=== PATIENT | male | born 1970 | race Caucasian/White ===

== ENCOUNTER 2016-09-14 13:06 | Emergency (ER) | payer MEDICARE, OTHER ==
[2016-09-14 13:23] VITALS: TEMP 97.1; O2SAT 96
--- NOTE | 2016-09-14 13:42 | ED.PDOC ---
History of Present Illness - General Chief Complaint: Chest Pain/VA Stated Complaint: chest pain Time Seen by Provider: 09/14/16 13:35 Source: patient Additional Information: C/P X 30 MINUTES. SUBSTERNAL, SOB, N, DIAPHORESIS - History of Present Illness Timing/Duration: 1/2 hour Severity: mild Improving Factors: other - SPONTANEOUS Worsening Factors: nothing Associated Symptoms: chest pain, diaphoresis, shortness of breath Allergies/Adverse Reactions: Allergies Penicillins Allergy (Intermediate, Verified 02/13/16 15:12) Unknown Home Medications: Ambulatory Orders Insulin Aspart [Novolog] 0 unit SC PRN PRN 03/19/14 Losartan Potassium 25 mg PO TUTHSA 03/19/14 Spironolactone [Aldactone] 25 mg PO DAILY 03/19/14 Trazodone HCl 100 mg PO BEDTIME 04/23/14 Ondansetron [Zofran Odt] 4 mg PO QID PRN #20 tab 05/27/15 Atorvastatin Calcium [Lipitor] 20 mg PO DAILY 11/22/15 Carvedilol [Coreg] 25 mg PO BID 11/22/15 Citalopram Hydrobromide [Celexa] 20 mg PO DAILY 11/22/15 Cyproheptadine HCl 4 mg PO DAILY 11/22/15 Ergocalciferol [Vitamin D] 50,000 unit PO MONTHLY 11/22/15 Losartan Potassium [Cozaar] 50 mg PO SUMOWEFR 11/22/15 Megestrol Acetate 40 mg PO DAILY 11/22/15 Omeprazole [PriLOSEC Cap] 20 mg PO DAILY 11/22/15 Promethazine Tab [Phenergan Tablet] 25 mg PO PRN PRN 11/22/15 LORazepam [Ativan] 1 mg PO PRN PRN 02/13/16 Potassium Chloride [Klor-Con] 20 meq PO DAILY 02/13/16 Review of Systems - Review of Systems EENTM: Denies: blurred vision, ear pain Respiratory: States: short of breath. Denies: cough, wheezing Cardiology: Denies: chest pain, palpitations Gastrointestinal/Abdominal: Denies: abdominal pain, nausea, vomiting Genitourinary: Denies: dysuria, hematuria Musculoskeletal: Denies: back pain, neck pain Skin: States: no symptoms reported Neurological: States: no symptoms reported Endocrine: States: no symptoms reported Hematologic/Lymphatic: States: no symptoms reported Past Medical History (General) - Patient Medical History Hx Seizures: No Hx Stroke: No Hx Dementia: No Hx Asthma: No Hx of COPD: No Hx Cardiac Disorders: Yes Hx Congestive Heart Failure: Yes Hx Pacemaker: No Hx Hypertension: Yes Hx Thyroid Disease: No Hx Diabetes: No Hx Gastroesophageal Reflux: Yes Hx Renal Disease: Yes - End stage, on dialysis Hx Cancer: No Hx of HIV: No Hx Hepatitis C: Yes - hx drug use Hx MRSA: No - Vaccination History Hx Tetanus, Diphtheria Vaccination: Yes Hx Influenza Vaccination: Yes - 2016 Hx Pneumococcal Vaccination: Yes - Social History Hx Tobacco Use: Yes Hx Chewing Tobacco Use: No Hx Alcohol Use: Yes - former Hx Substance Use: Yes Hx Substance Use Treatment: No Hx Depression: Yes Hx Physical Abuse: No Hx Emotional Abuse: No Hx Suspected Abuse: No - Activities of Daily Living Halfway/Assisted Living (if applicable):: [facility] - Female History Patient : No Family Medical History - Family History Mother Family History: No Known Living Status: Hx Family Asthma: No Hx Family Congestive Heart Failure: Yes Hx Family Hypertension: Yes Hx Family Stroke: Yes - unsure Hx Cardiac Disease: Yes Hx Family Diabetes: Yes Hx Family Cancer: No Physical Exam - Physical Exam General Appearance: Alert, Comfortable Eye Exam: bilateral normal Ears, Nose, Throat: hearing grossly normal, normal ENT inspection Neck: non-tender, full range of motion, supple Respiratory: lungs clear, normal breath sounds, no respiratory distress Cardiovascular/Chest: regular rate, rhythm, no murmur Gastrointestinal/Abdominal: non tender, soft, no organomegaly Back Exam: normal inspection, no CVA tenderness Extremity: normal range of motion, non-tender Neurologic: normal mood/affect, oriented x 3 Skin Exam: normal color, warm/dry Lymphatic: no adenopathy Progress - Progress Progress: 09/14/16 14:58 NO CP SINCE ARRIVAL, LAB OK, K 5.1. NO EKG CHANGES. D/W DR CHAVEZ, WILL ARRANGE FOR DIALYSIS TOMORROW. - EKG/XRAY/CT EKG: Sinus - RARE 82, NL AXIS, NL INTERVALS, , no ST T wave changes - NAIP, NO CHANGE COMPARED TO 05/27/15 Departure - Departure Clinical Impression: Chest pain Qualifiers: Chest pain type: precordial chest pain Qualifier Code: (R07.2) Precordial pain Time of Disposition: 15:01 Disposition: Discharge to Home or Self Care Condition: Good Departure Forms: ED Discharge - Pt. Copy, Patient Portal Self Enrollment Home Medications: Ambulatory Orders Insulin Aspart [Novolog] 0 unit SC PRN PRN 03/19/14 Losartan Potassium 25 mg PO TUTHSA 03/19/14 Spironolactone [Aldactone] 25 mg PO DAILY 03/19/14 Trazodone HCl 100 mg PO BEDTIME 04/23/14 Ondansetron [Zofran Odt] 4 mg PO QID PRN #20 tab 05/27/15 Atorvastatin Calcium [Lipitor] 20 mg PO DAILY 11/22/15 Carvedilol [Coreg] 25 mg PO BID 11/22/15 Citalopram Hydrobromide [Celexa] 20 mg PO DAILY 11/22/15 Cyproheptadine HCl 4 mg PO DAILY 11/22/15 Ergocalciferol [Vitamin D] 50,000 unit PO MONTHLY 11/22/15 Losartan Potassium [Cozaar] 50 mg PO SUMOWEFR 11/22/15 Megestrol Acetate 40 mg PO DAILY 11/22/15 Omeprazole [PriLOSEC Cap] 20 mg PO DAILY 11/22/15 Promethazine Tab [Phenergan Tablet] 25 mg PO PRN PRN 11/22/15 LORazepam [Ativan] 1 mg PO PRN PRN 02/13/16 Potassium Chloride [Klor-Con] 20 meq PO DAILY 02/13/16 Additional Instructions: FOLLOW UP A DIALYSIS TOMORROW
--- NOTE | 2016-09-14 14:36 | RAD ---
EXAM DESCRIPTION: XR CHEST 1 VIEW CLINICAL HISTORY: chest pain COMPARISON: 04/07/2016 TECHNIQUE: Single-view FINDINGS: Heart size is top limits normal. Lungs are clear. No acute osseous injury. IMPRESSION: No acute chest process Electronically signed by: Yunior Escamilla MD 09/14/2016 14:35
[2016-09-14 14:52] VITALS: BP 191/110
[2016-09-14] MEDS ORDERED: cloNIDine HCL 0.1 MG TAB PO ONE (15:04)
== END 2016-09-14 15:00 | disposition home or self-care (01) ==
LOC: ER 13:06
DX: R07.2 Precordial pain (principal); I13.2 Hypertensive heart and chronic kidney disease with heart failure and with stage 5 chronic kidney disease, or end stage renal disease; I50.9 Heart failure, unspecified; N18.6 End stage renal disease; Z99.2 Dependence on renal dialysis; K21.9 Gastro-esophageal reflux disease without esophagitis; Z86.19 Personal history of other infectious and parasitic diseases; Z88.0 Allergy status to penicillin; Z79.4 Long term (current) use of insulin; Z79.899 Other long term (current) drug therapy; Z87.891 Personal history of nicotine dependence

== ENCOUNTER 2016-09-22 15:11 | Emergency (ER) | payer MEDICARE, OTHER ==
[2016-09-22 15:40] VITALS: TEMP 96.7
[2016-09-22] MEDS ORDERED: MORPHINE SULFATE INJ 10 MG/ML VIAL IV ONE ×2 (16:03→17:31)
--- NOTE | 2016-09-22 16:30 | RAD ---
EXAM DESCRIPTION: Hip,Right 2 Views CLINICAL HISTORY: 46 years, Male, FALL COMPARISON: CT abdomen and pelvis without contrast November 22, 2015. FINDINGS: There is a displaced intertrochanteric fracture of the right femur with varus angulation. The femoral head remains well-seated in the acetabulum. There is a suspected nondisplaced fracture of the superior pubic ramus. Limited evaluation of the lower lumbar spine and sacrum demonstrate no gross abnormalities. The soft tissue structures of the pelvis and proximal thighs are grossly normal. IMPRESSION: 1. Transverse, displaced, angulated intertrochanteric fracture of the right femur. 2. Suspected nondisplaced fracture of the right superior pubic ramus. Electronically signed by: David Lambert MD 09/22/2016 4:29 PM DIRECTOR OF OCCUPATIONAL HEALTH
--- NOTE | 2016-09-22 17:35 | ED.PDOC ---
History of Present Illness - General Chief Complaint: Lower Extremity Injury Stated Complaint: right hip pain Time Seen by Provider: 09/22/16 17:05 Source: patient, RN notes reviewed, Vital Signs reviewed, EMS Exam Limitations: no limitations - History of Present Illness Initial Comments: Patient is a 46 y/o male with a history of end stage renal disease who was sitting on a bench earlier today when he stood up and fell. He was initially able to bear weight when EMS arrived, however shortly thereafter unable to bear weight at all. The pain is a 7/10 in his right leg. Sharp pain. Timing/Duration: 1 hour Severity: severe Improving Factors: immobilization Worsening Factors: movement Allergies/Adverse Reactions: Allergies Penicillins Allergy (Intermediate, Verified 02/13/16 15:12) Unknown Home Medications: Ambulatory Orders Insulin Aspart [Novolog] 0 unit SC PRN PRN 03/19/14 Losartan Potassium 25 mg PO TUTHSA 03/19/14 Spironolactone [Aldactone] 25 mg PO DAILY 03/19/14 Trazodone HCl 100 mg PO BEDTIME 04/23/14 Ondansetron [Zofran Odt] 4 mg PO QID PRN #20 tab 05/27/15 Atorvastatin Calcium [Lipitor] 20 mg PO DAILY 11/22/15 Carvedilol [Coreg] 25 mg PO BID 11/22/15 Citalopram Hydrobromide [Celexa] 20 mg PO DAILY 11/22/15 Cyproheptadine HCl 4 mg PO DAILY 11/22/15 Ergocalciferol [Vitamin D] 50,000 unit PO MONTHLY 11/22/15 Losartan Potassium [Cozaar] 50 mg PO SUMOWEFR 11/22/15 Megestrol Acetate 40 mg PO DAILY 11/22/15 Omeprazole [PriLOSEC Cap] 20 mg PO DAILY 11/22/15 Promethazine Tab [Phenergan Tablet] 25 mg PO PRN PRN 11/22/15 LORazepam [Ativan] 1 mg PO PRN PRN 02/13/16 Potassium Chloride [Klor-Con] 20 meq PO DAILY 02/13/16 Review of Systems - Review of Systems Constitutional: States: no symptoms reported EENTM: States: no symptoms reported Respiratory: States: no symptoms reported Cardiology: States: no symptoms reported Gastrointestinal/Abdominal: States: no symptoms reported Genitourinary: States: no symptoms reported Musculoskeletal: States: joint pain, muscle pain Skin: States: no symptoms reported Neurological: States: no symptoms reported Endocrine: States: no symptoms reported Hematologic/Lymphatic: States: no symptoms reported All other Systems: Reviewed and Negative Past Medical History (General) - Patient Medical History Hx Seizures: No Hx Stroke: No Hx Dementia: No Hx Asthma: No Hx of COPD: No Hx Cardiac Disorders: Yes Hx Congestive Heart Failure: Yes Hx Pacemaker: No Hx Hypertension: Yes Hx Thyroid Disease: No Hx Diabetes: No Hx Gastroesophageal Reflux: Yes Hx Renal Disease: Yes - End stage, on dialysis Hx Cancer: No Hx of HIV: No Hx Hepatitis C: Yes - hx drug use Hx MRSA: No - Vaccination History Hx Tetanus, Diphtheria Vaccination: Yes Hx Influenza Vaccination: Yes - 2016 Hx Pneumococcal Vaccination: Yes - Social History Hx Tobacco Use: Yes Hx Chewing Tobacco Use: No Hx Alcohol Use: Yes - former Hx Substance Use: Yes Hx Substance Use Treatment: No Hx Depression: Yes Hx Physical Abuse: No Hx Emotional Abuse: No Hx Suspected Abuse: No - Female History Patient : No Family Medical History - Family History Mother Family History: No Known Living Status: Hx Family Asthma: No Hx Family Congestive Heart Failure: Yes Hx Family Hypertension: Yes Hx Family Stroke: Yes - unsure Hx Cardiac Disease: Yes Hx Family Diabetes: Yes Hx Family Cancer: No Physical Exam - Physical Exam General Appearance: Alert, Obvious distress, Unkempt Ears, Nose, Throat: hearing grossly normal, normal ENT inspection Neck: non-tender Respiratory: lungs clear, normal breath sounds, no respiratory distress, no accessory muscle use Cardiovascular/Chest: regular rate, rhythm, no edema, no gallop, no murmur Gastrointestinal/Abdominal: normal bowel sounds, non tender, soft, no organomegaly Extremity: other - right hip/pelvis tenderness Neurologic: alert, normal mood/affect, oriented x 3 Skin Exam: warm/dry Progress - Progress Progress: 09/22/16 17:48 Patient remained stable throughout stay. Was given Morphine 2 mg, then an additional 2 mg prior to transfer. - EKG/XRAY/CT XRAY: femur - Right Xray Comments: Angulated displaced trochanteric fracture Departure - Departure Clinical Impression: Fracture due to fall, ESRD (end stage renal disease) on dialysis Fall from standing Qualifiers: Encounter type: initial encounter Qualifier Code: (W19.XXXA) Unspecified fall, initial encounter Femur fracture, right Qualifiers: Encounter type: initial encounter Femur location: trochanter Fracture type: closed Qualifier Code: (S72.101A) Unspecified trochanteric fracture of right femur, initial encounter for closed fracture Fracture of pubic ramus Qualifiers: Encounter type: initial encounter Fracture type: closed Laterality: right Qualifier Code: (S32.501A) Unspecified fracture of right pubis, initial encounter for closed fracture Disposition: Transfer to Hospital Condition: Fair Departure Forms: ED Discharge - Pt. Copy, Patient Portal Self Enrollment Home Medications: Ambulatory Orders Insulin Aspart [Novolog] 0 unit SC PRN PRN 03/19/14 Losartan Potassium 25 mg PO TUTHSA 03/19/14 Spironolactone [Aldactone] 25 mg PO DAILY 03/19/14 Trazodone HCl 100 mg PO BEDTIME 04/23/14 Ondansetron [Zofran Odt] 4 mg PO QID PRN #20 tab 05/27/15 Atorvastatin Calcium [Lipitor] 20 mg PO DAILY 11/22/15 Carvedilol [Coreg] 25 mg PO BID 11/22/15 Citalopram Hydrobromide [Celexa] 20 mg PO DAILY 11/22/15 Cyproheptadine HCl 4 mg PO DAILY 11/22/15 Ergocalciferol [Vitamin D] 50,000 unit PO MONTHLY 11/22/15 Losartan Potassium [Cozaar] 50 mg PO SUMOWEFR 11/22/15 Megestrol Acetate 40 mg PO DAILY 11/22/15 Omeprazole [PriLOSEC Cap] 20 mg PO DAILY 11/22/15 Promethazine Tab [Phenergan Tablet] 25 mg PO PRN PRN 11/22/15 LORazepam [Ativan] 1 mg PO PRN PRN 02/13/16 Potassium Chloride [Klor-Con] 20 meq PO DAILY 02/13/16 Transfer to Outside Facility - Transfer Information Accepting Provider:: Dr. Whipple Accepting Facility: [facility] Reason for Transfer: required specialist not available
[2016-09-22 18:29] VITALS: BP 142/99; O2SAT 96
== END 2016-09-22 18:10 | disposition short-term general hospital (02) ==
LOC: ER 15:11
DX: S72.101A Unspecified trochanteric fracture of right femur, initial encounter for closed fracture (principal); S32.501A Unspecified fracture of right pubis, initial encounter for closed fracture; I13.2 Hypertensive heart and chronic kidney disease with heart failure and with stage 5 chronic kidney disease, or end stage renal disease; N18.6 End stage renal disease; I50.9 Heart failure, unspecified; Z99.2 Dependence on renal dialysis; K21.9 Gastro-esophageal reflux disease without esophagitis; Z79.899 Other long term (current) drug therapy; Z79.4 Long term (current) use of insulin; Z88.0 Allergy status to penicillin; Z87.891 Personal history of nicotine dependence; W19.XXXA Unspecified fall, initial encounter
CPT/HCPCS: 73502; J2270

== ENCOUNTER 2016-10-29 03:29 | Emergency (ER) | payer MEDICARE, OTHER ==
[2016-10-29] MEDS ORDERED: SODIUM CHLORIDE 0.9% (FLUSH) 10 ML SYG IV PRN (04:00)
[2016-10-29 04:01] VITALS: TEMP 98.6; O2SAT 100
--- NOTE | 2016-10-29 04:30 | CT ---
EXAM: CT head without contrast. INDICATION: Headache. TECHNIQUE: Contiguous axial CT images of the brain. Intravenous contrast: Absent. DLP 773 mGy-cm. This exam was performed according to our departmental dose-optimization program, which includes automated exposure control, adjustment of the mA and/or kV according to patient size and/or use of iterative reconstruction technique. COMPARISON: 05/26/2016. FINDINGS: There is a 1.4 x 1.0 cm area of intraparenchymal hemorrhage centered within the body of the right caudate nucleus. There is intraventricular extension with a 1.0 x 1.0 cm hematoma within the right frontal horn. There is no midline shift, herniation, or hydrocephalus. There is diffuse cerebral atrophy with moderate periventricular deep white matter chronic microvascular changes. The paranasal sinuses and mastoid air cells are clear. IMPRESSION: Intraparenchymal hemorrhage centered within the right caudate with intraventricular extension. No midline shift, herniation, or hydrocephalus. The above critical findings were discussed with and acknowledged by Dr. Thurman at 4:25 AM on 10/29/2016 Electronically signed by: Braden Cardoza MD 10/29/2016 4:30 AM CDT
--- NOTE | 2016-10-29 04:31 | RAD ---
EXAM: Single view chest. INDICATION: Chest pain. COMPARISON: Chest x-ray: 09/14/2016. FINDINGS: Cardiac silhouette: Unremarkable. Precious: Unremarkable. Lobar consolidation: None. Pleural effusion: None. Pneumothorax: None. Other: None. Bones: Unremarkable. Other: None. IMPRESSION: 1. No acute cardiopulmonary process. Electronically signed by: Braden Cardoza MD 10/29/2016 4:30 AM CDT
[2016-10-29] MEDS ORDERED: levETIRAcetam INJ 100 MG/ML VIAL IVPB ONE (04:35)
[2016-10-29] MEDS ORDERED: levETIRAcetam INJ 500 MG in SODIUM CHLORIDE 0.9% 100ML 100 ML IVPB ONE (04:37)
[2016-10-29] MEDS ORDERED: SODIUM CHLORIDE 0.9% 100ML 100 ML IVPB ONE ×2 (04:38→04:51)
--- NOTE | 2016-10-29 04:45 | ED.PDOC ---
History of Present Illness - General Chief Complaint: General Stated Complaint: N/V, altered mental status Time Seen by Provider: 10/29/16 03:58 Source: patient, RN notes reviewed, Vital Signs reviewed, EMS Exam Limitations: clinical condition - History of Present Illness Initial Comments: Patient is a 46 y/o male who was brought in by EMS from a local senior living. They sent him because of altered mental status and vomiting. The nurse noticed that he was somewhat altered at 1800 last night, but didn't think anything of it. She saw him later this morning and noticed that his altered mental status was much more severe, therefore she called EMS for transfer. Timing/Duration: unsure Severity: severe Improving Factors: nothing Worsening Factors: nothing Associated Symptoms: nausea/vomiting Allergies/Adverse Reactions: Allergies Penicillins Allergy (Intermediate, Verified 10/29/16 04:04) Unknown Home Medications: Ambulatory Orders Insulin Aspart [Novolog] 0 unit SC PRN PRN 03/19/14 Losartan Potassium 25 mg PO TUTHSA 03/19/14 Spironolactone [Aldactone] 25 mg PO DAILY 03/19/14 Trazodone HCl 100 mg PO BEDTIME 04/23/14 Ondansetron [Zofran Odt] 4 mg PO QID PRN #20 tab 05/27/15 Atorvastatin Calcium [Lipitor] 20 mg PO DAILY 11/22/15 Carvedilol [Coreg] 25 mg PO BID 11/22/15 Citalopram Hydrobromide [Celexa] 20 mg PO DAILY 11/22/15 Cyproheptadine HCl 4 mg PO DAILY 11/22/15 Ergocalciferol [Vitamin D] 50,000 unit PO MONTHLY 11/22/15 Losartan Potassium [Cozaar] 50 mg PO SUMOWEFR 11/22/15 Megestrol Acetate 40 mg PO DAILY 11/22/15 Omeprazole [PriLOSEC Cap] 20 mg PO DAILY 11/22/15 Promethazine Tab [Phenergan Tablet] 25 mg PO PRN PRN 11/22/15 LORazepam [Ativan] 1 mg PO PRN PRN 02/13/16 Potassium Chloride [Klor-Con] 20 meq PO DAILY 02/13/16 Review of Systems - Review of Systems Gastrointestinal/Abdominal: States: vomiting Neurological: States: other - aphasia, altered mental status Unable to Obtain Due To: clinical condition Past Medical History (General) - Patient Medical History Hx Seizures: No Hx Stroke: No Hx Dementia: No Hx Asthma: No Hx of COPD: No Hx Cardiac Disorders: No Hx Congestive Heart Failure: No Hx Pacemaker: No Hx Hypertension: Yes Hx Thyroid Disease: No Hx Diabetes: Yes Hx Gastroesophageal Reflux: Yes Hx Renal Disease: Yes Hx Cancer: No Hx of HIV: No Hx Hepatitis C: Yes Hx MRSA: No Surgical History: other - Vaccination History Hx Tetanus, Diphtheria Vaccination: Yes Hx Influenza Vaccination: Yes Hx Pneumococcal Vaccination: Yes Immunizations Up to Date: Yes - Social History Hx Tobacco Use: Yes Hx Chewing Tobacco Use: No Hx Alcohol Use: No Hx Substance Use: No Hx Substance Use Treatment: No Hx Depression: Yes Feels Threatened In Home Enviroment: No Feels Threatened In a Relationship: No Hx Physical Abuse: No Hx Emotional Abuse: No Hx Suspected Abuse: No - Activities of Daily Living Intermediate/Assisted Living (if applicable):: [facility] [place] - Female History Patient : No Family Medical History - Family History Mother Family History: No Known Living Status: Hx Family Asthma: No Hx Family Congestive Heart Failure: Yes Hx Family Hypertension: Yes Hx Family Stroke: Yes - unsure Hx Cardiac Disease: Yes Hx Family Diabetes: Yes Hx Family Cancer: No Physical Exam - Physical Exam General Appearance: Alert, Comfortable, Unkempt Ears, Nose, Throat: hearing grossly normal, normal ENT inspection Neck: non-tender, full range of motion, supple, normal inspection Respiratory: lungs clear, normal breath sounds, no respiratory distress, no accessory muscle use Cardiovascular/Chest: regular rate, rhythm, no edema, no gallop, systolic murmur - I/ systolic murmur Gastrointestinal/Abdominal: normal bowel sounds, non tender, soft, no organomegaly Neurologic: alert, aphasia, facial droop, motor weakness, disoriented x 3, other - GCS 12. Patient unable to completely follow commands, although he follows through when he is shown what to do. Skin Exam: normal color, warm/dry Progress - Progress Progress: 10/29/16 04:55 After Patient arrived, I noticed that he had facial drooping. Unsure of Patient 's baseline, we called the senior living and were told that he usually does not have facial drooping. Therefore, CT was ordered. I received a phone call from Dr. Cardoza, radiologist, who indicated that Patient had a right intracranial interventricular bleed. The stroke center in [facility] was called and I spoke to Zaid at [address] Salas at [address]. Dr. Salas advised to start Patient on a Cardizem drip and titrate to a blood pressure of less than 140 systolic, and Keppra 500 mg. - Results/Orders Results/Orders: 10/29/16 10/29/16 10/29/16 03:30 03:45 04:37 Temperature 98.6 F Pulse Rate [ 103 H 103 H monitor] Respiratory 16 16 Rate Blood Pressure 182/94 Blood Pressure 182/94 [Left Arm] O2 Sat by Pulse 100 Oximetry 10/29/16 04:00 Sodium Chloride 0.9% (Flush) [Saline Flush Syringe] 10 ml IV PRN PRN 10/29/16 04:01 IV Care:Saline Lock per Protoc QSHIFT Telemetry .ONCE CARDIAC ENZYME GROUP Stat COMPLETE METABOLIC PROFILE Stat EKG Assessment ONCE 10/29/16 04:07 URINALYSIS Stat 10/29/16 04:15 EKG STAT 10/29/16 04:37 levETIRAcetam INJ [Keppra INJECTION] 500 mg Sodium Chloride 0.9% 100Ml [NS ( NACL 0.9%) 100ml] 100 ml IVPB ONCE LEVETIRACETAM (KEPPRA) Stat 10/29/16 05:00 diltiaZEM DRIP [Cardizem Drip] 125 mg Sodium Chloride 0.9% 100Ml [NS (NACL 0.9 %) 100ml] 100 ml IVPB PRN Laboratory Results WBC 8.3 K/mm3 (4.8-10.8) 10/29/16 04:30 RBC 3.84 M/mm3 (4.70-6.10) L 10/29/16 04:30 Hgb 11.1 gm/dL (14.0-18.0) L 10/29/16 04:30 Hct 33.6 % (42.0-52.0) L 10/29/16 04:30 MCV 87.3 fl (80.0-94.0) 10/29/16 04:30 MCH 28.9 pg (27.0-31.0) 10/29/16 04:30 MCHC 33.2 g/dL (33.0-37.0) 10/29/16 04:30 RDW 14.6 % (11.5-14.5) H 10/29/16 04:30 Plt Count 225 K/mm3 (130-400) 10/29/16 04:30 MPV 7.7 fl (7.40-10.4) 10/29/16 04:30 Absolute Neuts (auto) 6.10 K/uL (1.8-6.8) 10/29/16 04:30 Absolute Lymphs (auto) 1.40 K/uL (1.0-3.4) 10/29/16 04:30 Absolute Monos (auto) 0.70 K/uL (0.2-0.8) 10/29/16 04:30 Absolute Eos (auto) 0.10 K/uL (0.0-0.4) 10/29/16 04:30 Absolute Basos (auto) 0.10 K/uL (0.0-0.1) 10/29/16 04:30 Neutrophils % 73.1 % (42.0-78.0) 10/29/16 04:30 Lymphocytes % 17.0 % (20.0-50.0) L 10/29/16 04:30 Monocytes % 8.0 % (2.0-9.0) 10/29/16 04:30 Eosinophils % 1.1 % (1.0-5.0) 10/29/16 04:30 Basophils % 0.8 % (0.0-2.0) 10/29/16 04:30 PT 11.5 SECONDS (9.4-12.5) 10/29/16 04:30 INR 1.020 10/29/16 04:30 PTT (SP) 37.8 SECONDS (25.1-36.5) H 10/29/16 04:30 CK-MB (CK-2) 3.3 ng/mL (0.0-4.4) 10/29/16 04:30 Troponin I 0.03 ng/mL (0.01-0.05) 10/29/16 04:30 - EKG/XRAY/CT EKG: Sinus, Tachy - 101 bpm, no ST T wave changes, Changed from - 09/14/2016-- Prior EKG has prolonged Comments: NML axis, NML intervals--Sinus tachycardia CT: Head-intracranial bleed extending to right ventricles. CT Ordered: No CT Interpretation Call Back: Yes CT Interpretation Call Back Date: 10/29/16 CT Interpretation Call Back Time: 04:20 Departure - Departure Clinical Impression: Hemorrhagic stroke, End stage renal disease Time of Disposition: 05:08 Disposition: Transfer to Hospital Condition: Serious Home Medications: Ambulatory Orders Insulin Aspart [Novolog] 0 unit SC PRN PRN 03/19/14 Losartan Potassium 25 mg PO TUTHSA 03/19/14 Spironolactone [Aldactone] 25 mg PO DAILY 03/19/14 Trazodone HCl 100 mg PO BEDTIME 04/23/14 Ondansetron [Zofran Odt] 4 mg PO QID PRN #20 tab 05/27/15 Atorvastatin Calcium [Lipitor] 20 mg PO DAILY 11/22/15 Carvedilol [Coreg] 25 mg PO BID 11/22/15 Citalopram Hydrobromide [Celexa] 20 mg PO DAILY 11/22/15 Cyproheptadine HCl 4 mg PO DAILY 11/22/15 Ergocalciferol [Vitamin D] 50,000 unit PO MONTHLY 11/22/15 Losartan Potassium [Cozaar] 50 mg PO SUMOWEFR 11/22/15 Megestrol Acetate 40 mg PO DAILY 11/22/15 Omeprazole [PriLOSEC Cap] 20 mg PO DAILY 11/22/15 Promethazine Tab [Phenergan Tablet] 25 mg PO PRN PRN 11/22/15 LORazepam [Ativan] 1 mg PO PRN PRN 02/13/16 Potassium Chloride [Klor-Con] 20 meq PO DAILY 02/13/16 Critical Care Note - Critical Care Note Total Time (mins): 25 Comments: See Progress Note. Time indicated is exclusive of any billable procedures. Transfer to Outside Facility - Transfer Information Accepting Provider:: Dr. Salas Accepting Facility: [facility] Reason for Transfer: required specialist not available
[2016-10-29] MEDS ORDERED: diltiaZEM DRIP 125 MG/25 ML VIAL IVPB ONE (04:51)
[2016-10-29] MEDS ORDERED: diltiaZEM DRIP 125 MG in SODIUM CHLORIDE 0.9% 100ML 100 ML IVPB SCH (05:00)
[2016-10-29 05:13] VITALS: BP 194/111
== END 2016-10-29 05:15 | disposition short-term general hospital (02) ==
LOC: ER 03:29
DX: I62.9 Nontraumatic intracranial hemorrhage, unspecified (principal); I12.0 Hypertensive chronic kidney disease with stage 5 chronic kidney disease or end stage renal disease; N18.6 End stage renal disease; E11.9 Type 2 diabetes mellitus without complications; K21.9 Gastro-esophageal reflux disease without esophagitis; B19.20 Unspecified viral hepatitis C without hepatic coma; Z79.899 Other long term (current) drug therapy; Z79.4 Long term (current) use of insulin; Z88.0 Allergy status to penicillin
CPT/HCPCS: 70450; 71010; 80053; 82550; 82553; 84484; 85025; 85610; 85730; 93005; J7050

== ENCOUNTER → 2016-11-08 | Outpatient (CLI) | payer MEDICARE, OTHER | LOC: EDSTATUS 12:42 → LAB.O 20:18 → GOCC 20:18 | PROVIDERS: ATTEND Internal Medicine | DX: N18.6 End stage renal disease (principal); N18.9 Chronic kidney disease, unspecified ==

== ENCOUNTER 2016-11-13 22:59 | Emergency (ER) | payer MEDICARE, OTHER ==
--- NOTE | 2016-11-14 00:53 | RAD ---
EXAM DESCRIPTION: Chest,1 View CLINICAL HISTORY: cough COMPARISON: April 07, 2016 FINDINGS: Cardiac silhouette is within normal limits. There is no focal parenchymal or pleural disease. Skin folds project over the left upper chest. There is no acute osseous process visualized. IMPRESSION: No evidence of acute cardiopulmonary disease. Electronically signed by: Andreas Cerda MD 11/14/2016 12:52 AM CDT
--- NOTE | 2016-11-14 00:59 | ED.PDOC ---
History of Present Illness - General Chief Complaint: GI Problem Stated Complaint: vomiting, fever Time Seen by Provider: 11/13/16 23:10 Source: patient, RN notes reviewed, Vital Signs reviewed Exam Limitations: clinical condition - History of Present Illness Initial Comments: Patient is a 46 y/o senior care resident who was sent to the ED for vomiting x 24 hours and fever. They did not report how high his fever has been, however his temperature is normal here. They had given him Phenergan and Zofran with no results. Here in the ED, Patient will cough and then throw up due to the cough. He has thrown up mostly phlegm. Patient was transferred from the ED on 10/29/2016 for a hemorrhagic which caused significant mental status changes. He has not returned to baseline as of this time, and will not respond to questions or follow instructions. Timing/Duration: 24 hours Severity: moderate Improving Factors: nothing Worsening Factors: nothing Associated Symptoms: other - unable to determine any additional symptoms, although Patient does cough here in the ED. Allergies/Adverse Reactions: Allergies Penicillins Allergy (Intermediate, Verified 10/29/16 04:04) Unknown Home Medications: Ambulatory Orders Insulin Aspart [Novolog] 0 unit SC PRN PRN 03/19/14 Losartan Potassium 25 mg PO TUTHSA 03/19/14 Spironolactone [Aldactone] 25 mg PO DAILY 03/19/14 Trazodone HCl 100 mg PO BEDTIME 04/23/14 Ondansetron [Zofran Odt] 4 mg PO QID PRN #20 tab 05/27/15 Atorvastatin Calcium [Lipitor] 20 mg PO DAILY 11/22/15 Carvedilol [Coreg] 25 mg PO BID 11/22/15 Citalopram Hydrobromide [Celexa] 20 mg PO DAILY 11/22/15 Cyproheptadine HCl 4 mg PO DAILY 11/22/15 Ergocalciferol [Vitamin D] 50,000 unit PO MONTHLY 11/22/15 Losartan Potassium [Cozaar] 50 mg PO SUMOWEFR 11/22/15 Megestrol Acetate 40 mg PO DAILY 11/22/15 Omeprazole [PriLOSEC Cap] 20 mg PO DAILY 11/22/15 Promethazine Tab [Phenergan Tablet] 25 mg PO PRN PRN 11/22/15 LORazepam [Ativan] 1 mg PO PRN PRN 02/13/16 Potassium Chloride [Klor-Con] 20 meq PO DAILY 02/13/16 Review of Systems - Review of Systems Constitutional: States: fever Gastrointestinal/Abdominal: States: vomiting Neurological: States: pre-existing deficit Unable to Obtain Due To: condition - 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 Past Medical History (General) - Patient Medical History Hx Seizures: No Hx Stroke: No Hx Dementia: No Hx Asthma: No Hx of COPD: No Hx Cardiac Disorders: No Hx Congestive Heart Failure: No Hx Pacemaker: No Hx Hypertension: Yes Hx Thyroid Disease: No Hx Diabetes: Yes Hx Gastroesophageal Reflux: Yes Hx Renal Disease: Yes Hx Cancer: No Hx of HIV: No Hx Hepatitis C: Yes Hx MRSA: No - Vaccination History Hx Tetanus, Diphtheria Vaccination: Yes Hx Influenza Vaccination: Yes Hx Pneumococcal Vaccination: Yes Immunizations Up to Date: Yes - Social History Hx Tobacco Use: Yes Hx Chewing Tobacco Use: No Hx Alcohol Use: No Hx Substance Use: No Hx Substance Use Treatment: No Hx Depression: Yes Hx Physical Abuse: No Hx Emotional Abuse: No Hx Suspected Abuse: No - Activities of Daily Living [facility] (if applicable[facility]:: [facility] - Female History Patient : No Family Medical History - Family History Mother Family History: No Known Living Status: Hx Family Asthma: No Hx Family Congestive Heart Failure: Yes Hx Family Hypertension: Yes Hx Family Stroke: Yes - unsure Hx Cardiac Disease: Yes Hx Family Diabetes: Yes Hx Family Cancer: No Physical Exam - Physical Exam General Appearance: Agitated, Emaciated, Restless, Unkempt Respiratory: lungs clear, normal breath sounds, no respiratory distress, no accessory muscle use Cardiovascular/Chest: regular rate, rhythm, no edema, no gallop, no murmur Gastrointestinal/Abdominal: normal bowel sounds, non tender, soft, no organomegaly Back Exam: normal inspection, no vertebral tenderness Neurologic: sensory deficit, depressed affect, disoriented x 3 Skin Exam: pallor Progress - Progress Progress: 11/14/16 01:03 During his Ed stay, the only time Patient threw up was when he was coughing. Therefore, I believe his emesis is due to gagging from the cough and phlegm. I will recommend Mucinex for the cough with close monitoring for worsening of cough and shortness of breath. Patient will be transferred back to the senior care. - Results/Orders Results/Orders: 11/13/16 11/13/16 11/14/16 23:08 23:10 00:24 Temperature 99.0 F Pulse Rate [ 117 H 115 H 123 H Right] Respiratory 18 18 18 Rate Blood Pressure 158/93 111/90 [Left Arm] O2 Sat by Pulse 98 98 Oximetry 11/13/16 23:18 URINALYSIS Stat Laboratory Results WBC 10.3 K/mm3 (4.8-10.8) 11/13/16 22:55 RBC 4.54 M/mm3 (4.70-6.10) L 11/13/16 22:55 Hgb 12.9 gm/dL (14.0-18.0) L 11/13/16 22:55 Hct 39.1 % (42.0-52.0) L 11/13/16 22:55 MCV 86.2 fl (80.0-94.0) 11/13/16 22:55 MCH 28.4 pg (27.0-31.0) 11/13/16 22:55 MCHC 33.0 g/dL (33.0-37.0) 11/13/16 22:55 RDW 15.0 % (11.5-14.5) H 11/13/16 22:55 Plt Count 218 K/mm3 (130-400) 11/13/16 22:55 MPV 9.1 fl (7.40-10.4) 11/13/16 22:55 Absolute Neuts (auto) 8.20 K/uL (1.8-6.8) H 11/13/16 22:55 Absolute Lymphs (auto) 1.30 K/uL (1.0-3.4) 11/13/16 22:55 Absolute Monos (auto) 0.60 K/uL (0.2-0.8) 11/13/16 22:55 Absolute Eos (auto) 0.10 K/uL (0.0-0.4) 11/13/16 22:55 Absolute Basos (auto) 0.10 K/uL (0.0-0.1) 11/13/16 22:55 Neutrophils % 79.4 % (42.0-78.0) H 11/13/16 22:55 Lymphocytes % 12.6 % (20.0-50.0) L 11/13/16 22:55 Monocytes % 6.3 % (2.0-9.0) 11/13/16 22:55 Eosinophils % 0.8 % (1.0-5.0) L 11/13/16 22:55 Basophils % 0.9 % (0.0-2.0) 11/13/16 22:55 Sodium 141 mmol/L (135-145) 11/13/16 22:55 Potassium 5.2 mmol/L (3.6-5.0) H 11/13/16 22:55 Chloride 88 mmol/L (101-111) L 11/13/16 22:55 Carbon Dioxide 35 mmol/L (21-31) H 11/13/16 22:55 Anion Gap 23.2 (12-18) H 11/13/16 22:55 BUN 48 mg/dL (7-18) H 11/13/16 22:55 Creatinine 7.43 mg/dL (0.6-1.3) H* 11/13/16 22:55 BUN/Creatinine Ratio 6.5 (10-20) L 11/13/16 22:55 Random Glucose 126 mg/dL (70-105) H 11/13/16 22:55 Serum Osmolality 295.4 mOsm/L (275-295) H 11/13/16 22:55 Calcium 10.2 mg/dL (8.4-10.2) 11/13/16 22:55 Total Bilirubin 0.6 mg/dL (0.2-1.0) 11/13/16 22:55 AST 20 IU/L (10-42) 11/13/16 22:55 ALT 13 IU/L (10-60) 11/13/16 22:55 Alkaline Phosphatase 136 IU/L (42-121) H 11/13/16 22:55 Serum Total Protein 8.5 gm/dL (6.4-8.2) H 11/13/16 22:55 Albumin 4.3 g/dl (3.2-5.5) 11/13/16 22:55 Globulin 4.2 gm/dL (2.3-3.5) H 11/13/16 22:55 Albumin/Globulin Ratio 1.0 (1.1-1.9) L 11/13/16 22:55 Lipase 31 U/L (22-51) 11/13/16 22:55 - EKG/XRAY/CT XRAY: chest - No acute process Departure - Departure Clinical Impression: Post-tussive emesis Time of Disposition: 01:06 Disposition: Discharge to SNF Condition: Poor Departure Forms: ED Discharge - Pt. Copy, Patient Portal Self Enrollment Referrals: EDMUNDO CAMPBELL [Primary Care Provider] - 1-2 Weeks Home Medications: Ambulatory Orders Insulin Aspart [Novolog] 0 unit SC PRN PRN 03/19/14 Losartan Potassium 25 mg PO TUTHSA 03/19/14 Spironolactone [Aldactone] 25 mg PO DAILY 03/19/14 Trazodone HCl 100 mg PO BEDTIME 04/23/14 Ondansetron [Zofran Odt] 4 mg PO QID PRN #20 tab 05/27/15 Atorvastatin Calcium [Lipitor] 20 mg PO DAILY 11/22/15 Carvedilol [Coreg] 25 mg PO BID 11/22/15 Citalopram Hydrobromide [Celexa] 20 mg PO DAILY 11/22/15 Cyproheptadine HCl 4 mg PO DAILY 11/22/15 Ergocalciferol [Vitamin D] 50,000 unit PO MONTHLY 11/22/15 Losartan Potassium [Cozaar] 50 mg PO SUMOWEFR 11/22/15 Megestrol Acetate 40 mg PO DAILY 11/22/15 Omeprazole [PriLOSEC Cap] 20 mg PO DAILY 11/22/15 Promethazine Tab [Phenergan Tablet] 25 mg PO PRN PRN 11/22/15 LORazepam [Ativan] 1 mg PO PRN PRN 02/13/16 Potassium Chloride [Klor-Con] 20 meq PO DAILY 02/13/16 Additional Instructions: May start guaifenesin 1200 mg PO BID for cough. Follow up in ED for any fever above 100.4, continued emesis not caused by cough, or shortness of breath.
[2016-11-14] MEDS ORDERED: guaiFENesin ER TAB 600 MG TAB PO SCH (02:00)
[2016-11-14] MEDS ORDERED: ZINC OXIDE OINT 30 GM TUBE TOP SCH (02:30)
[2016-11-14] MEDS ORDERED: SODIUM CHLORIDE 0.9% 1000ML 1,000 ML IVS ONE (02:58)
[2016-11-14] MEDS ORDERED: HALOPERIDOL LACTATE INJ 5 MG/ML VIAL IM ONE ×2 (03:26→03:45)
[2016-11-14] MEDS ORDERED: MIDAZOLAM INJ 5 MG/5 ML VIAL ONE (04:14)
[2016-11-15 00:12] VITALS: BP 116/92; TEMP 98.2; O2SAT 96
== END 2016-11-14 04:30 | disposition short-term general hospital (02) ==
LOC: ER 22:59
DX: K92.2 Gastrointestinal hemorrhage, unspecified (principal); R21 Rash and other nonspecific skin eruption; I12.0 Hypertensive chronic kidney disease with stage 5 chronic kidney disease or end stage renal disease; N18.6 End stage renal disease; Z99.2 Dependence on renal dialysis; I69.298 Other sequelae of other nontraumatic intracranial hemorrhage; E11.9 Type 2 diabetes mellitus without complications; K21.9 Gastro-esophageal reflux disease without esophagitis; R05 Cough; Z88.0 Allergy status to penicillin; Z79.899 Other long term (current) drug therapy; Z79.4 Long term (current) use of insulin; Z87.891 Personal history of nicotine dependence
CPT/HCPCS: 36415; 71010; 80053; 82271; 83690; 83986; 85025; J1630; J2060; J2250; J7030